=== PATIENT | female | born 1960 | race Caucasian/White ===

== ENCOUNTER 2022-04-25 13:56 | Emergency (ER) | payer OTHER, SELFPAY ==
[2022-04-25] VITALS (17 sets, daily range): BP systolic 106–128; BP diastolic 77–89; PULSE 76–87; RESP 18; TEMP 36.5; O2SAT 93–96; BMI 24.2
--- NOTE | 2022-04-25 14:10 | CRLHL7_ITS ---
For Patients: As a result of the Century Cures Act, medical imaging exams and procedure reports are released immediately into your electronic medical record. You may view this report before your referring provider. If you have questions, please contact your health care provider. INDICATION: Chest pain. TECHNIQUE: Chest 1 views. COMPARISON: None. FINDINGS: Cardiovascular and mediastinum: Heart size and vasculature are normal in caliber and appearance. Lungs and pleural spaces: Lungs are clear. No sign of infiltrate. No sign of pleural effusion. No pneumothorax. Bones and soft tissues: No significant findings. IMPRESSION: No acute or significant findings. Dictated by Lester Frias MD @ 04/25/2022 2:48:19 PM (Electronically Signed)
--- NOTE | 2022-04-25 14:15 | ED.CHESTPAIN ---
HPI - Chest Pain General Chief Complaint: Chest Pain Stated Complaint: Chest Pain Time Seen by Provider: 04/25/22 14:04 History of Present Illness HPI narrative: Yudy is a 61-year-old female patient without significant past medical history that presents to the emergency department via POV with complaints of substernal chest pain that began approximately 1 hour prior to arrival. She reports the pain radiated to her right neck. Patient reports that she was at rest when the pain began. She reports associated shortness of breath. The patient reports that she has a known history of tobacco abuse. She denies family history of cardiac disease. She denies associated symptoms including reflux, anxiety, nausea, vomiting, or abdominal pain. The patient denies change with p.o. intake. Patient denies cough, URI symptoms, or previous similar symptoms. She reports the symptoms lasted approximately 30 minutes prior to resolving without significant intervention. At time of arrival, the patient reports that she can still ?feel the pain? but is significantly improved. See nursing notes for additional details. MD complaint: chest pain Related Data Home Medications Medication Instructions Recorded Confirmed No Known Home Medications 04/25/22 04/25/22 Allergies Allergy/AdvReac Type Severity Reaction Status Date / Time No Known Drug Allergies Allergy Verified 04/25/22 15:49 Review of Systems Const Denies: fever, chills, fatigue or malaise ENMT Denies: throat pain, ear pain, nasal discharge or nasal congestion Cardio Reports: chest pain (sharp, substernal, with radiation into right neck) and shortness of breath with exertion; Denies: palpitations or swelling of feet/ankles Resp Reports: shortness of breath; Denies: cough GI Denies: abdominal pain, nausea, vomiting, diarrhea or constipation Neuro Denies: difficulty communicating thoughts Endo Denies: fatigue PFSH PFSH Social History Smoking Status: Current every day smoker What tobacco products do you use: cigarettes Smoking packs per day: 1 Smoking cigarettes per day: 20.0 Years smoked: 42 Smoking pack-years: 42.00 Do you use any of these nicotine containing products: None Second hand tobacco smoke exposure: Yes How often do you have a drink containing alcohol: monthly or less How many standard drinks containing alcohol do you have on a typical day: 1 or 2 How often do you have six or more drinks on one occasion: Never AUDIT-C Alcohol total score: 1 Non-prescribed substance use: denies use service: No Exam Const Vital Signs, click to edit/add: Vital Signs - 24 hr 04/25/22 14:02 04/25/22 14:11 04/25/22 14:30 Temperature 97.7 F Pulse Rate 85 83 Pulse Rate [Left Pulse Oximeter] 85 Respiratory Rate 18 Blood Pressure 127/89 Blood Pressure [Right Upper Arm] 128/82 Pulse Oximetry 95 94 95 Oxygen Delivery Method Room Air 04/25/22 14:31 04/25/22 14:32 04/25/22 15:00 Temperature Pulse Rate 83 83 83 Pulse Rate [Left Pulse Oximeter] Respiratory Rate Blood Pressure 117/88 Blood Pressure [Right Upper Arm] Pulse Oximetry 94 93 96 Oxygen Delivery Method 04/25/22 15:01 04/25/22 15:31 04/25/22 15:32 Temperature Pulse Rate 84 83 87 Pulse Rate [Left Pulse Oximeter] Respiratory Rate Blood Pressure 124/77 108/84 Blood Pressure [Right Upper Arm] Pulse Oximetry 94 95 94 Oxygen Delivery Method 04/25/22 16:00 04/25/22 16:01 04/25/22 16:30 Temperature Pulse Rate 77 82 80 Pulse Rate [Left Pulse Oximeter] Respiratory Rate Blood Pressure 113/80 Blood Pressure [Right Upper Arm] Pulse Oximetry 95 96 95 Oxygen Delivery Method 04/25/22 16:31 04/25/22 16:32 Temperature Pulse Rate 82 82 Pulse Rate [Left Pulse Oximeter] Respiratory Rate Blood Pressure 116/78 Blood Pressure [Right Upper Arm] Pulse Oximetry 95 95 Oxygen Delivery Method Documenting provider has reviewed patient's vital signs: yes Common normals: no apparent distress, oriented x3, no limitations, healthy appearing, alert and well nourished General appearance: cooperative, comfortable and well developed; not in distress Orientation/consciousness: Yes awake, Yes oriented to person and Yes oriented to place [facility] Common normals: normocephalic, head/scalp atraumatic and hearing grossly normal bilaterally Head and scalp: normocephalic and atraumatic Face and sinus: normal facial exam (within limits of masking) Eye Common normals: EOMs intact bilaterally General eye: normal appearance of both eyes Chest Common normals: inspection of chest normal and palpation of chest normal Resp Common normals: normal respiratory effort, no retractions, no use of accessory muscles and clear to auscultation bilaterally Effort & inspection: able to speak in complete sentences Auscultation: clear to auscultation bilaterally Cardio Common normals: regular rate, regular rhythm, S1 normal heart sound and S2 normal heart sound Rate: regular rate Rhythm: regular rhythm Heart sounds: S1 normal and S2 normal GI Common normals: Normal to inspection, nondistended, normoactive bowel sounds present, soft to palpation and non-tender Palpation: soft Extremity Common normals: normal to inspection, full ROM and no clubbing, cyanosis or edema Neuro Common normals: oriented x3, moves all extremities, no focal motor deficits and no sensory deficits noted Sensorium/orientation: awake, alert, oriented to person and oriented to place Gait (neuro): normal gait Motor exam: no movement abnormalities noted Psych Common normals: mental status grossly normal, thought process normal and activity/motor behavior normal Appearance: grossly normal Thought process: normal thought process Thought content: normal thought content Attention/concentration: attention grossly intact Memory/cognition: memory grossly intact Insight: insight good Judgement: judgment good Skin Common normals: no rashes or lesions noted General skin exam: no rashes or lesions noted Course Course Hospital Course: Yudy presented to the ED for evaluation of acute onset of chest pain that occurred approximately 1hr prior to arrival and lasted approximately 30min. The patient denies associated nausea or diaphoresis, but she reported associated shortness of breath. The patient reported the pain began at rest, while attempting to smoke. She denies previous similar concerns. Labs, imaging, and ECG were performed. The patient was offered no treatment initially as symptoms had nearly resolved on presentation. The patient was advised we planned to repeat labs given her prompt presentation to trend the troponins. The patient verbalized understanding and was agreeable for evaluation. DDimer was noted to be elevated and a CTA was ordered for evaluation of potential clot and found to be negative. Patient had no additional recurrence of pain. She has rested comfortably in the ED and is ready for DC after final results have returned. Vital Signs Vital signs: Initial Vital Signs Temperature 97.7 F 04/25/22 14:02 Temperature Source Temporal Artery Scan 04/25/22 14:02 Pulse Rate 85 04/25/22 14:02 Respiratory Rate 18 04/25/22 14:02 Blood Pressure 128/82 04/25/22 14:02 Blood Pressure Mean 97 04/25/22 14:02 Blood Pressure Position Sitting 04/25/22 14:02 Pulse Oximetry 95 04/25/22 14:02 Oxygen Delivery Method 04/25/22 14:02 Vital Signs Temperature 97.7 F 04/25/22 14:02 Pulse Rate 85 04/25/22 14:02 Respiratory Rate 18 04/25/22 14:02 Blood Pressure 128/82 04/25/22 14:02 Pulse Oximetry 95 04/25/22 14:02 Oxygen Delivery Method 04/25/22 14:02 Temperature 97.7 F 04/25/22 14:02 Pulse Rate 82 04/25/22 16:32 Respiratory Rate 18 04/25/22 14:02 Blood Pressure 116/78 04/25/22 16:31 Pulse Oximetry 95 04/25/22 16:32 Oxygen Delivery Method 04/25/22 14:02 MDM - Chest Pain MDM Narrative Medical decision making narrative: During evaluation of this patient, I consider multiple differential diagnoses. The life-threatening differential diagnoses: CAD/MA, PE, pneumothorax, pneumonia, and aortic dissection. Other differential diagnoses include but are not limited to: infectious or inflammatory findings, pericarditis, myocarditis, chest wall pain, GERD, esophageal rupture, as well as other etiologies. Medical Records Data Attestation: I reviewed the patient's medical records. Lab Data Attestation: I reviewed the patient's lab results. Labs: Lab Results 04/25/22 04/25/22 04/25/22 Range/Units 14:25 14:25 14:25 WBC 5.49 (4.50-11.00) K/uL RBC 4.06 (4.00-5.20) m/uL Hgb 13.6 (12.0-16.0) gm/dL Hct 38.9 (33.0-51.0) % MCV 96 (80-100) fL MCH 34 (26-34) pg MCHC 35 (32-36) gm/dL RDW Coeff of Laureen 11.8 (11.5-15.5) % Plt Count 185 (140-440) K/uL Neut % (Auto) 50.0 (42.0-72.0) % Lymph % (Auto) 38.3 (20-44) % Weston % (Auto) 8.7 (0.0-11.0) % Eos % (Auto) 2.6 (0.0-7.0) % Baso % (Auto) 0.4 (0.0-3.0) % Neut # (Auto) 2.75 (1.7-7.0) K/uL Lymph # (Auto) 2.10 (0.90-2.90) K/uL Weston # (Auto) 0.50 (0.00-0.90) K/UL Eos # (Auto) 0.14 (0.00-0.50) K/uL Baso # (Auto) 0.02 (0.00-0.30) K/uL Abs Immat Gran (auto) 0.00 (0.00-0.30) K/uL D-Dimer Quant (PE/DVT) 0.84 H (0.00-0.50) ug/ml Sodium 139 (135-149) mmol/L Potassium 4.0 (3.6-5.1) mmol/L Chloride 105 (96-114) mmol/L Carbon Dioxide 24 (20-32) mmol/L BUN 18 (7-30) mg/dL Creatinine 0.5 (0.5-1.5) mg/dL Estimated Creat Clear 53.91 Estimated GFR 105 ml/min Glucose 98 (60-115) mg/dL Calcium 9.1 (8.4-10.6) mg/dL Troponin I < 0.01 L (0.01-0.04) ng/mL 04/25/22 Range/Units 16:25 WBC (4.50-11.00) K/uL RBC (4.00-5.20) m/uL Hgb (12.0-16.0) gm/dL Hct (33.0-51.0) % MCV (80-100) fL MCH (26-34) pg MCHC (32-36) gm/dL RDW Coeff of Laureen (11.5-15.5) % Plt Count (140-440) K/uL Neut % (Auto) (42.0-72.0) % Lymph % (Auto) (20-44) % Weston % (Auto) (0.0-11.0) % Eos % (Auto) (0.0-7.0) % Baso % (Auto) (0.0-3.0) % Neut # (Auto) (1.7-7.0) K/uL Lymph # (Auto) (0.90-2.90) K/uL Weston # (Auto) (0.00-0.90) K/UL Eos # (Auto) (0.00-0.50) K/uL Baso # (Auto) (0.00-0.30) K/uL Abs Immat Gran (auto) (0.00-0.30) K/uL D-Dimer Quant (PE/DVT) (0.00-0.50) ug/ml Sodium (135-149) mmol/L Potassium (3.6-5.1) mmol/L Chloride (96-114) mmol/L Carbon Dioxide (20-32) mmol/L BUN (7-30) mg/dL Creatinine (0.5-1.5) mg/dL Estimated Creat Clear Estimated GFR ml/min Glucose (60-115) mg/dL Calcium (8.4-10.6) mg/dL Troponin I < 0.01 L (0.01-0.04) ng/mL Imaging Data Chest x-ray: Attestation: I have reviewed the pertinent imaging results. My impression: No obvious acute infiltrate or consolidation. Radiologist's impression: IMPRESSION: No acute or significant findings. CT scan - chest: Attestation: I have reviewed the pertinent imaging results. My impression: IMPRESSION: 1. No pulmonary embolism. 2. Grossly clear lungs. ECG Data Attestation: I personally reviewed and interpreted this ECG as follows: (NSR. 85bpm. Normal axis. T-wave inversion in aVL / aVR.) ECG interpretation date: 04/25/22 ECG interpretation time: 14:25 Prior ECG tracings: not available for review Discharge Plan Discharge Clinical Impression: Atypical chest pain Patient Disposition: Home, Self-Care Condition: Improved Instructions: Chest Pain (ED) Additional Instructions: Thank you for choosing [facility] for your care today. You should consider following up outpatient with consideration for outpatient stress if pain returns. You do have multiple risk factors for ACS. You should return to the emergency department if condition worsens (chest pain, shortness of breath or further sweaty spells) and/or as needed. Your care today was on an emergency basis and is not intended to be a substitute for on-going care with your primary physician. I recommend calling primary care for follow-up in the next 3-5 days for follow-up as needed and to review any labs, testing, or imaging you have had in the Emergency Department. If new or worsening symptoms develop or you have any concerns in the meantime, please call your primary care clinic or return to the ER for re-evaluation. Activity Level: No Restrictions and Activity as Tolerated Discharge Diet: Heart Healthy (2 gm sodium, low fat) Prescriptions: No Action No Known Home Medications Stand Alone Forms: [employer] Info Instructions
[2022-04-25 14:35] LABS: Basophils Absolute Auto 0.02 K/uL (0.00-0.30); Basophils Percent Auto 0.4 % (0.0-3.0); Eosinophils Absolute Auto 0.14 K/uL (0.00-0.50); Eosinophils Percent Auto 2.6 % (0.0-7.0); Hematocrit 38.9 % (33.0-51.0); Hemoglobin* 13.6 gm/dL (12.0-16.0); Lymphocytes Percent Auto 38.3 % (20-44); Mean Corpuscular HGB Conc 35 gm/dL (32-36); Mean Corpuscular Hemoglobin 34 pg (26-34); Mean Corpuscular Volume 96 fL (80-100); Monocytes Percent Auto 8.7 % (0.0-11.0); Neutrophils Absolute Auto 2.75 K/uL (1.7-7.0); Platelet Count* 185 K/uL (140-440); RDW Coefficient of Variation % 11.8 % (11.5-15.5); Red Blood Count 4.06 m/uL (4.00-5.20); White Blood Count* 5.49 K/uL (4.50-11.00)
[2022-04-25 14:36] LABS: Slide Review Reflex No
[2022-04-25 14:50] LABS: Chloride* 105 mmol/L (96-114); Sodium* 139 mmol/L (135-149)
[2022-04-25 14:53] LABS: Blood Urea Nitrogen* 18 mg/dL (7-30); Carbon Dioxide* 24 mmol/L (20-32); Creatinine* 0.5 mg/dL (0.5-1.5); Est. Creatinine Clearance* 53.91; Estimated Glomerular Filt Rate 105 ml/min; Glucose* 98 mg/dL (60-115)
[2022-04-25 14:54] LABS: Calcium* 9.1 mg/dL (8.4-10.6); D Dimer Quantitative* 0.84 ug/ml (0.00-0.50)
--- NOTE | 2022-04-25 15:16 | CRLHL7_ITS ---
For Patients: As a result of the Century Cures Act, medical imaging exams and procedure reports are released immediately into your electronic medical record. You may view this report before your referring provider. If you have questions, please contact your health care provider. INDICATION: Acute chest pain. Elevated D-dimer. TECHNIQUE: CT chest PE was acquired with 95 mL Isovue 370 IV contrast. Coronal and sagittal reformats were generated. COMPARISON: None. FINDINGS: Pulmonary arteries: The quality of enhancement of the pulmonary arteries is adequate. No filling defects to suggest pulmonary emboli. No findings of pulmonary artery hypertension. Thyroid: Unremarkable. Thoracic lymph nodes: No enlarged supraclavicular, mediastinal, hilar, or axillary lymph nodes. Mediastinum and esophagus: Unremarkable. Heart and vasculature: Unremarkable. Lungs: Bibasilar ground-glass opacities are probably atelectasis. Pleura: Unremarkable. Chest wall: Unremarkable. Upper abdomen: Cholecystectomy. Probable hepatic cysts. Otherwise, unremarkable. Bones: Unremarkable for age. IMPRESSION: 1. No pulmonary embolism. 2. Grossly clear lungs. Please note that all CT scans at this facility use dose modulation, iterative reconstruction, and/or weight-based dosing when appropriate to reduce radiation dose to as low as reasonably achievable. Dictated by Raffaele Li MD @ 04/25/2022 4:32:01 PM (Electronically Signed)
[2022-04-25 15:40] LABS: Troponin I* < 0.01 ng/mL (0.01-0.04)
[2022-04-25 17:10] LABS: Troponin I* < 0.01 ng/mL (0.01-0.04)
== END 2022-04-25 17:40 | disposition home or self-care (01) ==
PROVIDERS: Emergency Provider Family Medicine; PCP Family Medicine
DX: R07.89 Other chest pain (principal)
CPT/HCPCS: 36415; 71045; 71260; 80048; 84484; 85025; 85379; 93005; 99283; 99285; Q9967